=== PATIENT | female | born 1970 | race Caucasian/White ===

== ENCOUNTER 2018-06-30 15:50 | Outpatient (CLI) | payer BC, SELFPAY ==
--- NOTE | 2018-06-30 15:09 | DI.RAD_ITS ---
SYMPTOMS/DIAGNOSIS: RIGHT HIP PAIN, M25.551, RIGHT HIP GROIN PAIN DAILY, WORSE WITH STAIRS RIGHT HIP AND PELVIS: Three views were obtained. There is minimal hypertrophic spurring of the acetabulum. The cartilaginous joint space appears well maintained. No other bony abnormalities seen. CONCLUSION: Minimal DJD of the hip.
== END 2018-06-30 16:10 ==
PROVIDERS: PCP Nurse Practitioner Family; Visit Provider Nurse Practitioner Family
DX: M25.551 Pain in right hip (principal); R10.31 Right lower quadrant pain; M16.11 Unilateral primary osteoarthritis, right hip
CPT/HCPCS: 73502

== ENCOUNTER 2018-12-07 10:50 | Outpatient (CLI) | payer BC, SELFPAY ==
[2018-12-07 11:30] LABS: Abs Immature Grans 0.03 k/cumm (0.0-0.09); Absolute Basophil Count 0.02 k/cumm (0.0-0.2); Absolute Eosinophil Count 0.07 k/cumm (0.0-0.7); Absolute Lymphocyte Count 1.31 k/cumm (1.2-3.4); Absolute Monocyte Count 0.54 k/cumm (0.11-0.7); Absolute Neutrophil Count 4.17 k/cumm (1.2-6.7); Basophils % 0.3; Eosinophils % 1.1; HCT 38.2 % (36.0-46.0); HGB 12.7 g/dL (12.0-15.5); Immature Grans % 0.5; Lymphocytes % 21.3; Mean Corp. HGB Concentration 33.2 g/dL (32.0-36.0); Mean Corpuscular Hemoglobin 29.3 pg (27.0-33.0); Mean Corpuscular Volume 88.2 fL (80-95); Mean Platelet Volume 11.3 fL (8.0-11.0); Monocytes % 8.8; Platelet Count 184 x1000/uL (130-400); RBC 4.33 m/cumm (4.00-5.20); RBC Distribution Width 12.9 % (11.7-14.6); White Blood Cell Count 6.14 k/cumm (4.4-10.8)
[2018-12-07 11:58] LABS: ALT 15 U/L (12-78); AST 7 U/L (15-37); Albumin 3.2 g/dL (3.4-5.0); Alkaline Phosphatase 79 U/L (46-116); BUN 10 mg/dL (7-18); Bilirubin, Total 0.2 mg/dL (0.2-1.0); CREATININE 0.73 mg/dL (0.55-1.02); Calcium 8.7 mg/dL (8.5-10.1); Chloride 106 mmol/L (98-107); Ferritin 69 ng/mL (8-388); Glucose 85 mg/dL (70-100); Potassium 3.5 mmol/L (3.5-5.1); Sodium 139 mmol/L (136-145); Total Protein 6.9 g/dL (6.4-8.2)
== END 2018-12-07 11:10 ==
PROVIDERS: PCP Nurse Practitioner Family; Visit Provider Registered Nurse Oncology
DX: C50.919 Malignant neoplasm of unspecified site of unspecified female breast (principal)
CPT/HCPCS: 36415; 80053; 82728; 85025

== ENCOUNTER 2019-02-21 01:10 | Outpatient (CLI) | payer BC, SELFPAY ==
--- NOTE | 2019-02-21 09:41 | DI.US_ITS ---
EXAM: US BREAST RT LIMITED CLINICAL HISTORY: RT BREAST PAIN, MASTODYNIA RT BR, HX LT BR CA. {AMRITA LIFETIME RISK OF DEVELOPING BREAST CARCINOMA: (>20% is considered elevated and screening breast MRI can be considered)} TECHNIQUE: Craniocaudal and mediolateral oblique Full Field Digital Mammography views with Computer Aided Diagnosis followed by Breast Tomosynthesis and bilateral breast ultrasound. COMPARISON: DIAGNOSTIC BILAT MAMMO W/CAD from 11/28/2012 Diagnostic Right Mammo from 09/29/2015 FINDINGS: Mammography/Tomosynthesis: Patient is status post left mastectomy Breast Density: Breast Density - Category B - Scattered areas of fibroglandular density Masses/Architectural Distortion: No suspicious masses are present. Stable coarsely calcified masses in the right breast. These likely reflect benign fibroadenomas. Microcalcifications: No suspicious pleomorphic-type are seen. Breast Ultrasound: Right breast ultrasound Echotexture: Normal appearance of the glandular tissue. Shadowing: No suspicious foci. Cyst: None. Solid lesions: There is a shadowing well-circumscribed echogenic nodule at the 9 o'clock position of the right breast 6 cm from the nipple. This corresponds in location to the calcified nodule seen on the mammogram. No suspicious cystic or solid masses are seen sonographically. Ductal dilation: None. IMPRESSION: 1. No definite evidence for malignancy Unless there is more urgent need, follow-up screening mammography is recommended, as per [place] [employer] guidelines. BI-RADS Cat 2 - Benign Findings Breast Density - Category B - Scattered areas of fibroglandular density The findings were discussed with the patient on the date of the examination. A negative radiographic report should not delay biopsy if a dominant or clinically suspicious mass is present. Up to ten percent of cancers are not identified on mammography. A negative report may reinforce clinical impression. Adenosis and dense breasts may obscure an underlying neoplasm. False positive reports average 6 to 10%.
[2019-02-21 11:05] LABS: Abs Immature Grans 0.02 k/cumm (0.0-0.09); Absolute Basophil Count 0.01 k/cumm (0.0-0.2); Absolute Eosinophil Count 0.07 k/cumm (0.0-0.7); Absolute Lymphocyte Count 1.31 k/cumm (1.2-3.4); Absolute Monocyte Count 0.39 k/cumm (0.11-0.7); Absolute Neutrophil Count 4.27 k/cumm (1.2-6.7); Basophils % 0.2; Eosinophils % 1.2; HCT 44.2 % (36.0-46.0); HGB 14.6 g/dL (12.0-15.5); Immature Grans % 0.3; Lymphocytes % 21.6; Mean Corpuscular Hemoglobin 28.6 pg (27.0-33.0); Mean Corpuscular Volume 86.7 fL (80-95); Mean Platelet Volume 10.6 fL (8.0-11.0); Monocytes % 6.4; Neutrophils % 70.3; Platelet Count 231 x1000/uL (130-400); RBC Distribution Width 12.8 % (11.7-14.6); White Blood Cell Count 6.07 k/cumm (4.4-10.8)
[2019-02-21 11:54] LABS: Glucose 85 mg/dL (70-100); TSH (W/Ref FT4) 2.16 uIU/mL (0.36-3.74)
[2019-02-21 12:06] LABS: Calculated LDL 163 mg/dL; Cholesterol 231 mg/dL (50-200); HDL Cholesterol 40 mg/dL (40-60); Triglyceride 144 mg/dL (30-150)
== END 2019-02-21 01:30 ==
PROVIDERS: PCP Nurse Practitioner Family; Visit Provider Nurse Practitioner Women's Health
DX: N64.4 Mastodynia (principal); N63.11 Unspecified lump in the right breast, upper outer quadrant; Z85.3 Personal history of malignant neoplasm of breast; Z90.12 Acquired absence of left breast and nipple; D64.9 Anemia, unspecified; Z13.220 Encounter for screening for lipoid disorders; Z00.00 Encounter for general adult medical examination without abnormal findings
CPT/HCPCS: 36415; 76642; 77061; 77065; 80061; 82947; 84443; 85025; G0279

== ENCOUNTER 2019-06-04 11:56 | Emergency (ER) | payer BC, SELFPAY ==
[2019-06-04] VITALS (16 sets, daily range): BP systolic 123–152; BP diastolic 70–89; PULSE 63–76; RESP 10–22; TEMP 36.5–36.8; O2SAT 97–100
--- NOTE | 2019-06-04 12:56 | ED.GENADUL_ITS ---
Discharge Plan Disposition Patient Disposition: HOME Condition: Stable Discharge Details Chief Complaint: SOB Clinical Impression: Dyspnea Primary Care Provider: Nhi Fraser ED Provider: Guille Sandoval Home Meds and New Rx's Prescriptions: Continued citalopram 40 mg Tablet 40 mg PO DAILY RF: 0 omeprazole 40 mg Capsule,Delayed Release(Dr/Ec) 40 mg PO DAILY RF: 0 topiramate [Topamax] 100 mg tablet 200 mg PO BID RF: 0 Discharge Instructions Instructions: Dyspnea (ED) Additional Instructions: I have ordered an outpatient stress test for you as we discussed. Please call [phone]. Please follow-up with Dr Nhi Fraser in clinic for recheck after your stress test. Return for worsening symptoms or any acute concerns in the interim. Continue your regular medications. Medical Decision Making <Guille Sandoval MD - Last Filed: 06/04/19 16:15> 48-year-old female presents from home complaining of 6+ weeks of intermittent episodes of exertional shortness of breath associated with a tightness in her chest and neck. Has been associated with recent increase in stress and anxiety, 25 pound weight gain. She was seen at her primary care physician's office this week and reassured without any evidence of active URI. She arrives with a blood pressure 152/89, pulse 72, 99% sat on room air. Her exam is reassuring. Differential diagnosis is broad and would include ACS, CHF, must exclude PE or pneumonitis, would consider globus hystericus. IV was placed, screening EKG obtained, patient referred for laboratory, chest x-ray. Initial labs are reassuring with a white count of 6.4, hematocrit 41, platelets 266. D-dimer 232. Chemistries within normal limits, initial troponin negative, BNP 70. Chest x-ray without acute findings. Patient kept on a automotive consultant and repeat troponin obtained and negative. I will order an outpatient stress test for her. I discussed with her follow-up with primary after this outpatient evaluation. She is stable for discharge at this time. Lab Data Lab results reviewed: Yes I reviewed the patient's lab results. Labs: Laboratory Results - last 24 hr 06/04/19 06/04/19 06/04/19 13:30 13:30 13:30 WBC 6.47 RBC 4.74 Hgb 14.0 Hct 41.4 MCV 87.3 MCH 29.5 MCHC 33.8 RDW 13.0 Plt Count 266 MPV 10.6 Immature Gran % 0.3 Neutrophils % 63.9 Lymphocytes % 24.4 Monocytes % 9.6 Eosinophils % 1.5 Basophils % 0.3 Absolute Neutrophils 4.13 Absolute Lymphocytes 1.58 Absolute Monocytes 0.62 Absolute Eosinophils 0.10 Absolute Basophils 0.02 D-Dimer 232 Sodium 140 Potassium 3.8 Chloride 106 Carbon Dioxide 23.2 Anion Gap 10.8 BUN 13 Creatinine 0.64 Estimated GFR/1.73 m2 >= 60.00 Glucose 86 Calcium 8.7 Magnesium 2.0 Total Bilirubin 0.2 AST 19 ALT 21 Alkaline Phosphatase 74 Troponin I < 0.05 NT-Pro-B Natriuret Pep 70 Total Protein 7.3 Albumin 3.5 ECG Data Attestation: I personally reviewed and interpreted this ECG (s) as follows: Interpretation: Normal sinus rhythm with a rate of 70, the QRS is narrow, there is nonspecific flattening in the inferior leads, no ST segment elevation appreciated. <LAZ Ewing - Last Filed: 06/04/19 16:30> Has accepted in anticipated sign out, Dr. Sandoval discharged patient prior to his departure, I did not see or evaluate patient. Name entered in error. HPI <Guille Sandoval MD - Last Filed: 06/04/19 16:15> General Mode of arrival: ambulatory . Date/Time Provider Initiated Documentation: 06/04/19 12:13 . Limitations to Documentation: no limitations . Information obtained by: patient . History of Present Illness 48 year old F presents to the emergency department with the chief complaint of Shortness of breath, exertional, 6 weeks or greater, described as mild, and is localized to the chest. Patient reports no radiation. Patient started experiencing this week(s) and it has been intermittent. Rest improves symptom(s), Other factors that worsen symptoms (Exertion) . Patient notes chest pain and other (Neck pain). Patient did receive the following treatments prior to arrival, none Related Data Home Medications Medication Instructions Recorded Confirmed citalopram 40 mg PO DAILY 06/04/19 06/04/19 omeprazole 40 mg PO DAILY 06/04/19 06/04/19 topiramate [Topamax] 200 mg PO BID 06/04/19 06/04/19 Allergies Allergy/AdvReac Type Severity Reaction Status Date / Time No Known Allergies Allergy Unverified 06/04/19 12:09 General Stated Complaint: SOB JAKY: 3 Review of Systems <Guille Sandoval MD - Last Filed: 06/04/19 16:15> Narrative: No lower extremity pain or swelling, no prolonged travel or immobilization. No known sick contacts. No syncope. States she has not had fever, sputum. Increased anxiety and weight gain of 25 pounds. 8 systems reviewed and otherwise negative. PFSH <Guille Sandoval MD - Last Filed: 06/04/19 16:15> Medical History Acid reflux (Chronic) Migraines (Chronic) Social History Smoking/Tobacco Use Status: Never Alcohol Intake: never Drug use: Never Substance use type: does not use Exam <Guille Sandoval MD - Last Filed: 06/04/19 16:15> Narrative Exam Narrative: GEN: awake, alert, oriented 3. Pleasant, well groomed, interactive. HEAD: Normocephalic, atraumatic ENT: Mucous membranes moist, oropharynx unremarkable, External ear exam unremarkable EYES: PERRL, EOMI NECK: Full ROM, no JANE, no menigismus CHEST/RESP: Nontender, clear to auscultation bilateral, no wheeze/rhonchi/rales CARDIOVASCULAR: RRR, no murmur, rub zuri. 2+ Rad pulse bilateral ABDOMEN: Soft, nontender, no mass. +Bowel sounds EXT: Full ROM, no edema, no rash Neuro: Grossly normal neurologic exam, conversant, interactive. Psych: Speech fluent, thoughts congruent, affect normal Course <Guille Sandoval MD - Last Filed: 06/04/19 16:15> Vital Signs Vital signs: Vital Signs Temperature 36.5 C 06/04/19 11:59 Pulse 72 06/04/19 11:59 Respiratory Rate 22 06/04/19 11:59 Blood Pressure 152/89 H 06/04/19 11:59 Pulse Oximetry 99 06/04/19 11:59 Temperature 36.5 C 06/04/19 11:59 Temperature Source Skin 06/04/19 11:59 Pulse 72 06/04/19 11:59 Respiratory Rate 22 06/04/19 11:59 Respiratory Effort 06/04/19 12:08 Blood Pressure 152/89 H 06/04/19 11:59 Blood Pressure Position Sitting 06/04/19 11:59 Pulse Oximetry 99 06/04/19 11:59 Oxygen Delivery Method Room Air 06/04/19 11:59 Oxygen Flow Rate 0 06/04/19 11:59 Pain Level 5 06/04/19 11:59 Sign Out <Guille Sandoval MD - Last Filed: 06/04/19 16:15> Sign Out Data: Sign Out Comment: [email or web address] TRop Last updated by Guille Sandoval MD at 06/04/19 15:50
--- NOTE | 2019-06-04 13:37 | DI.RAD_ITS ---
EXAM: XR CHEST 2V PA LATERAL CLINICAL HISTORY: shortness of breath. TECHNIQUE: 2D digital imaging was performed. COMPARISON: No exams were available for comparison FINDINGS: LUNGS: Clear. No pleural abnormality seen. HEART: Normal. MEDIASTINUM: Normal. OTHER FINDINGS:Normal. BONE:Normal. IMPRESSION: No acute pulmonary findings.
[2019-06-04 13:48] LABS: Abs Immature Grans 0.02 k/cumm (0.0-0.09); Absolute Basophil Count 0.02 k/cumm (0.0-0.2); Absolute Lymphocyte Count 1.58 k/cumm (1.2-3.4); Absolute Monocyte Count 0.62 k/cumm (0.11-0.7); Absolute Neutrophil Count 4.13 k/cumm (1.2-6.7); Basophils % 0.3; Eosinophils % 1.5; HCT 41.4 % (36.0-46.0); Immature Grans % 0.3 %; Lymphocytes % 24.4; Mean Corp. HGB Concentration 33.8 g/dL (32.0-36.0); Mean Corpuscular Hemoglobin 29.5 pg (27.0-33.0); Mean Corpuscular Volume 87.3 fL (80-95); Mean Platelet Volume 10.6 fL (8.0-11.0); Monocytes % 9.6; Neutrophils % 63.9; Platelet Count 266 x1000/uL (130-400); RBC 4.74 m/cumm (4.00-5.20); White Blood Cell Count 6.47 k/cumm (4.4-10.8)
[2019-06-04 14:00] LABS: ALT 21 U/L (14-59); AST 19 U/L (15-37); Albumin 3.5 g/dL (3.4-5.0); Alkaline Phosphatase 74 U/L (46-116); Anion Gap 10.8 mmol/L (3-11); BUN 13 mg/dL (7-18); Bilirubin, Total 0.2 mg/dL (0.2-1.0); CO2 23.2 mmol/L (21.0-32.0); CREATININE 0.64 mg/dL (0.55-1.02); Calcium 8.7 mg/dL (8.5-10.1); Chloride 106 mmol/L (98-107); Glucose 86 mg/dL (74-106); NT-proBNP 70 pg/mL (<300); Potassium 3.8 mmol/L (3.5-5.1); Sodium 140 mmol/L (136-145); Total Protein 7.3 g/dL (6.4-8.2); Troponin I < 0.05 ng/Ml (<0.06)
[2019-06-04 14:23] LABS: D-Dimer 232 ng/mlFEU (<500)
[2019-06-04] MEDS: Ketorolac 30 MG/ML VIAL IVP (16:02)
[2019-06-04 16:08] LABS: Troponin I < 0.05 ng/Ml (<0.06)
--- NOTE | 2019-06-04 17:52 | NUR.NOTE ---
Referral faxed to PCP Nhi Fraser.Nursing Note:
== END 2019-06-04 16:33 | disposition home or self-care (01) ==
PROVIDERS: Emergency Provider Emergency Medicine; PCP Nurse Practitioner Family
DX: R06.00 Dyspnea, unspecified (principal)
CPT/HCPCS: 36415; 80053; 93005; 96374; 99284; 71046; 83735; 83880; 84484; 85025; 85379; 93010; 99283; J1885

== ENCOUNTER 2019-06-07 00:19 | Outpatient (CLI) | payer BC, SELFPAY ==
--- NOTE | 2019-06-07 09:44 | ETT_ITS ---
APPROVED REPORT Exam: Exercise Treadmill Patient Location: Out-Patient Room/Bed: Stress Nurse: Miley Rosales RN BMI: 32.76 Baseline Rhythm: NSR Indications: SOB with minimal exertion. Medical History Allergies: No known drug allergies Pretest Chest Pain Characteristics: Dyspnea Exercise History: Indeterminate Lung Sounds: Clear to auscultation Heart Sounds: Regular Stress Test Details Test: Exercise stress testing was performed using a Stephan protocol. Rest Stress HR Max Heart Rate (APMHR): 173 bpm Resting HR Supine: 78 bpm Target HR (85% APMHR): 147 bpm Resting HR Standin bpm Max HR Achieved: 122 bpm % of APMHR: 70 Recovery HR: 79 bpm HR response to stress: Normal HR response to stress BP Resting BP Supine: 140/82 mmHg Resting BP Standin/80 mmHg Max BP: 220/98 mmHg Recovery BP: 130/80 mmHg BP response to stress: Abnormal hypertensive response to stress. ECG Resting ECG: Sinus Rhythm ST Change: No significant ST segment changes Ectopy: none Stress ECG: Sinus Tachycardia ST Change: No significant ST segment changes Arrhythmia: None Recovery ECG: Sinus Rhythm Recovery ST Change: No significant ST segment changes Recovery Arrhythmia: None Clinical Reason for Termination: Dyspnea Stress Symptoms: Dyspnea Exercise duration: 2 min47 sec Highest Stage Achieved: Stage 1: 1.7 mph at 10% grade. Exercise capacity: 4.64 METs Functional Capacity: Markedly diminished capacity Stress ECG Conclusion 1. Patient exercised for 2 minutes 47 seconds (4.5 METS). Exercise was stopped due to dyspnea. 2. This represents a markedly diminished exercise capacity. 3. The patient reached 70% of his predicted heart rate but was severely hypertensive during exercise. Rate-pressure product was 26,000. 4. This was an insufficient study as the lack of heart rate augmentation limits the interpretation. 5. At this level of stress there was no significant ischemia visualized on ECG. 6. The Curtis Score (3) estimates an annual cardiovascular mortality of 1% and a five year survival of 94%. Using the Curtis Score there is an intermediate probability of angiographic coronary disease. Protocol Used: Stephan Protocol Stress Test Summary STAGE Time (mins) Speed (mph) Grade (%) HR BP SYMPTOMS METS Supine 78 140/82 Standing 82 134/80 1 3 1.7 10 119 220/98 Significant dyspnea 4.6 2 6 2.5 12 7 3 9 3.4 14 10.2 4 12 4.2 16 12.9 5 15 5.0 18 17.2 1 min recovery 108 170/90 3 min recovery 86 140/80 6 min recovery 79 130/80
== END 2019-06-07 00:39 ==
PROVIDERS: PCP Nurse Practitioner Family; Visit Provider Emergency Medicine
DX: R06.02 Shortness of breath (principal); R06.09 Other forms of dyspnea; R68.89 Other general symptoms and signs
CPT/HCPCS: 93017

== ENCOUNTER 2019-06-07 12:07 | Emergency (ER) | payer BC, SELFPAY ==
[2019-06-07 12:10] VITALS: BP 118/76; PULSE 87; RESP 16; TEMP 36.7; O2SAT 100
--- NOTE | 2019-06-07 12:24 | ED.GENADUL_ITS ---
Discharge Plan Disposition Patient Disposition: HOME Condition: Stable Discharge Details Chief Complaint: Cellulitis Clinical Impression: Cellulitis of arm, left Primary Care Provider: Nhi Fraser ED Provider: Guille Sandoval Home Meds and New Rx's Prescriptions: New amoxicillin-pot clavulanate 875-125 mg tablet 1 tab PO BID 10 Days Qty: 20 RF: 0 Continued citalopram 40 mg Tablet 40 mg PO DAILY RF: 0 omeprazole 40 mg Capsule,Delayed Release(Dr/Ec) 40 mg PO DAILY RF: 0 topiramate [Topamax] 100 mg tablet 200 mg PO BID RF: 0 Discharge Instructions Instructions: Cellulitis (ED) Additional Instructions: Keep arm elevated above the level of the heart to reduce pain and swelling. Take antibiotics as prescribed. The next dose of Augmentin will be this evening at bedtime. I recommend you take an [id number] probiotic or live culture yogurt once daily while on this medication for improved gut health. Continue your regularly prescribed occasions. Please follow-up with Alfredo in clinic for recheck next week. I discussed her case with her over the phone today. Discharge Data Discharge Date/Time-TO BE ENTERED AT DEPARTURE: 06/07/19 14:53 Medical Decision Making 48-year-old female known to me from visit to the emergency department on June 04 for some longstanding shortness of breath. She had a work-up including troponin x2 and negative d-dimer, with follow-up palpation exercise stress test today. She states that the shortness of breath has been unchanged, it is primarily exertional, and there is no chest pain. She noticed this morning erythema that began at her wrist with associated left arm swelling and erythema has spread up the arm today. She was in clinic with Alfredo Helton with these findings, subsequently sent to the emergency department for evaluation. Her exam reveals normal pulse, blood pressure, she is afebrile and oxygenating 100% on room air. There is a blanching, erythematous rash of the left upper extremity with associated swelling. Most consistent with cellulitis, must exclude underlying DVT although less likely given recent negative d-dimer. Patient IV access established, screening labs, blood cultures obtained, antibiotics initiated with Unasyn and patient referred for ultrasound of the upper extremity. There is no evidence of DVT. Laboratories reveal a white count of 7.5, hematocrit 41.5, platelets 245. Chemistries unremarkable. Lactic acid 1.3. Will place on Augmentin and arrange for outpatient follow-up in clinic. Lab Data Lab results reviewed: Yes I reviewed the patient's lab results. Labs: Laboratory Results - last 24 hr 06/07/19 06/07/19 06/07/19 12:35 12:35 12:35 WBC 7.54 RBC 4.69 Hgb 13.6 Hct 41.5 MCV 88.5 MCH 29.0 MCHC 32.8 RDW 13.1 Plt Count 245 MPV 10.4 Immature Gran % 0.3 Neutrophils % 77.1 Lymphocytes % 13.4 Monocytes % 8.4 Eosinophils % 0.7 Basophils % 0.1 Absolute Neutrophils 5.82 Absolute Lymphocytes 1.01 L Absolute Monocytes 0.63 Absolute Eosinophils 0.05 Absolute Basophils 0.01 Sodium 138 Potassium 3.5 Chloride 106 Carbon Dioxide 23.3 Anion Gap 8.7 BUN 9 Creatinine 0.75 Estimated GFR/1.73 m2 >= 60.00 Glucose 103 Lactate 1.3 Calcium 8.5 Total Bilirubin 0.2 AST 13 L ALT 17 Alkaline Phosphatase 86 Total Protein 7.5 Albumin 3.5 HPI General Mode of arrival: ambulatory . Date/Time Provider Initiated Documentation: 06/07/19 12:12 . Limitations to Documentation: no limitations . Information obtained by: patient . History of Present Illness 48 year old F presents to the emergency department with the chief complaint of Left arm swelling and rash, unchanged shortness of breath, Quality is described as dull, and is localized to the left and upper extremity. Patient reports no radiation. Patient started experiencing this hour(s) and it has been constant. No relieving factors improve symptom(s), No exacerbating factors reported . Patient notes other (She has some chronic shortness of breath which is unchanged. Perform stress test today. Denies fever, + chills). Patient did receive the following treatments prior to arrival, none Related Data Home Medications Medication Instructions Recorded Confirmed citalopram 40 mg PO DAILY 06/04/19 06/07/19 omeprazole 40 mg PO DAILY 06/04/19 06/07/19 topiramate [Topamax] 200 mg PO BID 06/04/19 06/07/19 amoxicillin-pot clavulanate 1 tab PO BID 10 Days #20 tab 06/07/19 Previous Rx's Medication Instructions Recorded amoxicillin-pot clavulanate 1 tab PO BID 10 Days #20 tab 06/07/19 Allergies Allergy/AdvReac Type Severity Reaction Status Date / Time No Known Allergies Allergy Unverified 06/07/19 12:16 General Stated Complaint: Cellulitis JAKY: 3 Review of Systems Narrative: 6 systems reviewed and otherwise negative [facility] Social History Smoking/Tobacco Use Status: Never Alcohol Intake: never Drug use: Never Substance use type: does not use Do you feel safe at home: Yes Do you feel safe in your relationship?: Yes Exam Narrative Exam Narrative: GEN: awake, alert, oriented 3. Pleasant, well groomed, interactive. HEAD: Normocephalic, atraumatic ENT: Mucous membranes moist, oropharynx unremarkable, External ear exam unremarkable EYES: PERRL, EOMI NECK: Full ROM, no JANE, no menigismus CHEST/RESP: Nontender, clear to auscultation bilateral, no wheeze/rhonchi/rales CARDIOVASCULAR: RRR, no murmur, rub zuri. 2+ Rad pulse bilateral ABDOMEN: Soft, nontender, no mass. +Bowel sounds EXT: Full ROM, the left upper extremity is edematous throughout. There is a blanching erythematous rash on the medial portion of the humerus and forearm. Neuro: Grossly normal neurologic exam, conversant, interactive. Psych: Speech fluent, thoughts congruent, affect normal Course Vital Signs Vital signs: Vital Signs Temperature 36.7 C 06/07/19 12:10 Pulse 87 06/07/19 12:10 Respiratory Rate 16 06/07/19 12:10 Blood Pressure 118/76 06/07/19 12:10 Pulse Oximetry 100 06/07/19 12:10 Temperature 36.7 C 06/07/19 12:10 Temperature Source Skin 06/07/19 12:10 Pulse 87 06/07/19 12:10 Respiratory Rate 16 06/07/19 12:10 Respiratory Effort 06/07/19 12:16 Blood Pressure 118/76 06/07/19 12:10 Blood Pressure Position Sitting 06/07/19 12:10 Pulse Oximetry 100 06/07/19 12:10 Oxygen Delivery Method Room Air 06/07/19 12:10 Oxygen Flow Rate 0 06/07/19 12:10 Pain Level 3 06/07/19 12:10
[2019-06-07] MEDS: diphenhydrAMINE 50 MG/ML VIAL 12.5 MG IVP (12:51)
[2019-06-07 13:04] LABS: Lactate 1.3 mmol/L (0.6-1.4)
[2019-06-07 13:09] LABS: Abs Immature Grans 0.02 k/cumm (0.0-0.09); Absolute Basophil Count 0.01 k/cumm (0.0-0.2); Absolute Eosinophil Count 0.05 k/cumm (0.0-0.7); Absolute Lymphocyte Count 1.01 k/cumm (1.2-3.4); Absolute Monocyte Count 0.63 k/cumm (0.11-0.7); Absolute Neutrophil Count 5.82 k/cumm (1.2-6.7); Basophils % 0.1; Eosinophils % 0.7; HCT 41.5 % (36.0-46.0); HGB 13.6 g/dL (12.0-15.5); Immature Grans % 0.3 %; Lymphocytes % 13.4; Mean Corp. HGB Concentration 32.8 g/dL (32.0-36.0); Mean Corpuscular Volume 88.5 fL (80-95); Mean Platelet Volume 10.4 fL (8.0-11.0); Monocytes % 8.4; Neutrophils % 77.1; Platelet Count 245 x1000/uL (130-400); RBC 4.69 m/cumm (4.00-5.20); RBC Distribution Width 13.1 % (11.7-14.6); White Blood Cell Count 7.54 k/cumm (4.4-10.8)
[2019-06-07 13:18] LABS: ALT 17 U/L (14-59); AST 13 U/L (15-37); Albumin 3.5 g/dL (3.4-5.0); Alkaline Phosphatase 86 U/L (46-116); Anion Gap 8.7 mmol/L (3-11); BUN 9 mg/dL (7-18); Bilirubin, Total 0.2 mg/dL (0.2-1.0); CO2 23.3 mmol/L (21.0-32.0); CREATININE 0.75 mg/dL (0.55-1.02); Calcium 8.5 mg/dL (8.5-10.1); Chloride 106 mmol/L (98-107); Glucose 103 mg/dL (74-106); Potassium 3.5 mmol/L (3.5-5.1); Sodium 138 mmol/L (136-145); Total Protein 7.5 g/dL (6.4-8.2)
[2019-06-07] MEDS: Normal Saline Flush 10 ML SYR IVP ×2 (13:22→14:01)
--- NOTE | 2019-06-07 13:33 | DI.US_ITS ---
EXAM: US UPPER EXTREMITY VENOUS LT CLINICAL HISTORY: SWELLING AND RASH TECHNIQUE: Ultrasound performed using standard protocol. COMPARISON: No exams were available for comparison FINDINGS: The arm was scanned from the wrist through the neck. The jugular, subclavian and axillary veins as w ell as basilic and cephalic veins and forearm veins appear patent. No thrombus is visible. There ar e no superficial venous varicosities. No localized fluid collection is seen. IMPRESSION: Negative left upper extremity ultrasound.
[2019-06-07] MEDS: AMPICILLIN/SULBACTAM 3 GM in Normal Saline 100 ML IVPB (13:59)
--- NOTE | 2019-06-07 14:05 | NUR.NOTE ---
ordered a meal tray for pt Nursing Note:
[2019-06-07] MEDS: Amoxicillin 875/Clav. 125 TAB PO (14:45)
[2019-06-07 14:46] VITALS: BP 134/75; PULSE 76; RESP 16; TEMP 36.7; O2SAT 92
[2019-06-07 15:03] VITALS: BP 134/75; PULSE 76; RESP 16; TEMP 36.7; O2SAT 92
== END 2019-06-07 14:53 | disposition home or self-care (01) ==
PROVIDERS: Emergency Provider Emergency Medicine; PCP Nurse Practitioner Family
DX: L03.114 Cellulitis of left upper limb (principal)
CPT/HCPCS: 36415; 80053; 87040; 87077; 96365; 96375; 99284; 83605; 85025; 93971; J0295; J1200

== ENCOUNTER 2019-06-19 11:04 | Emergency (ER) | payer BC, SELFPAY ==
[2019-06-19 11:08] VITALS: BP 131/92; PULSE 95; RESP 18; TEMP 36.6; O2SAT 97
--- NOTE | 2019-06-19 11:23 | W.ED.GENAD ---
Discharge Plan Disposition Patient Disposition: HOME Condition: Stable Discharge Details Chief Complaint: Nausea/Vomit/Diar Clinical Impression: Hypokalemia, Diarrhea Primary Care Provider: Nhi Fraser ED Provider: Andrew Hawthorne Home Meds and New Rx's Prescriptions: New potassium chloride 20 mEq tablet extended release 20 meq PO BID Qty: 14 RF: 0 ondansetron 4 mg tablet,disintegrating 4 mg PO Q8H PRN (Reason: nausea and vomiting) Qty: 20 RF: 0 metronidazole [Flagyl] 500 mg tablet 500 mg PO Q8H Qty: 21 RF: 0 Continued citalopram 40 mg Tablet 40 mg PO DAILY RF: 0 omeprazole 40 mg Capsule,Delayed Release(Dr/Ec) 40 mg PO DAILY RF: 0 topiramate [Topamax] 100 mg tablet 200 mg PO BID RF: 0 Discharge Instructions Instructions: Hypokalemia (ED), Acute Diarrhea (ED) Additional Instructions: follow up with your primary care provider within 1 week and have your potassium level rechecked return a stool sample to our lab when you are able to provide a sample if you feel more ill, have severe worsening of pain or high fevers return to the emergency department Medical Decision Making 48 yo female who recently was on augmentin for an arm cellulitis that has resolved comes in with 1 week of diarrhea that is worsening and also intermittent n/v and abdominal pain. Denies fevers, recent travel. She is noted to have tenderness throughout the lower abdomen. Given her recent abx will test for c diff and also obtain lab work and imaging to eval for sbo, diverticulitis and appendicitis vs colitis. labs show K of 2.7 and anion gap of 16 likely from dehydration. Her pain is gone and she feels better, unable to provide stool sample here, CT does confirm colitis. Will start flagyl and send home with stool collection kit to return to lab for testing, advised f/u with pcp and return precautions given Differential Diagnosis Differential Diagnosis: c diff, colitis, diverticulitis, appendicitis, sbo Imaging Data Radiologic Study: Attestation: I personally reviewed and interpreted this imaging study as follows: Imaging: CT Scan Radiologist's impression: IMPRESSION: Diffuse mild colonic wall thickening, consistent with colitis. Lab Data Lab results reviewed: Yes I reviewed the patient's lab results. HPI General Mode of arrival: ambulatory. Date/Time Provider Initiated Documentation: 06/19/19 11:12. Limitations to Documentation: no limitations. Information obtained by: patient. History of Present Illness 48 year old F presents to the emergency department with the chief complaint of n/v/d, described as moderate, and it has been constant. No relieving factors improve symptom(s), No exacerbating factors reported . Patient did receive the following treatments prior to arrival, none Related Data Home Medications Medication Instructions Recorded Confirmed citalopram 40 mg PO DAILY 06/04/19 06/19/19 omeprazole 40 mg PO DAILY 06/04/19 06/19/19 topiramate [Topamax] 200 mg PO BID 06/04/19 06/19/19 metronidazole [Flagyl] 500 mg PO Q8H #21 tab 06/19/19 ondansetron 4 mg PO Q8H PRN #20 tab 06/19/19 potassium chloride 20 meq PO BID #14 tab 06/19/19 Previous Rx's Medication Instructions Recorded metronidazole [Flagyl] 500 mg PO Q8H #21 tab 06/19/19 ondansetron 4 mg PO Q8H PRN #20 tab 06/19/19 potassium chloride 20 meq PO BID #14 tab 06/19/19 Allergies Allergy/AdvReac Type Severity Reaction Status Date / Time No Known Allergies Allergy Unverified 06/07/19 12:16 General Stated Complaint: Nausea/Vomit/Diar JAKY: 3 Review of Systems All systems reviewed & are unremarkable except as noted in HPI and below Constitutional Constitutional: Denies chills and Denies fever(s) Cardiovascular Cardiovascular: Denies chest pain and Denies dyspnea Respiratory Respiratory: Denies cough and Denies dyspnea Musculoskeletal Musculoskeletal: Denies joint swelling Endocrine Endocrine: Denies heat intolerance [facility] Social History Smoking/Tobacco Use Status: Never Alcohol Intake: never Drug use: Never Substance use type: does not use Do you feel safe at home: Yes Do you feel safe in your relationship?: Yes Exam Const General: no acute distress Orientation: alert HENMT Head: normal to inspection Ears: external ears normal General nose exam: external nose normal Mouth: moist mucous membranes Eyes General: appearance normal, both eyes and all related structures Neck Neck: normal visual inspection Resp Effort & Inspection: normal respiratory effort and able to speak in complete sentences Cardio Rate: regular rate GI Palpation: soft Skin General skin exam: no rashes or lesions noted Neuro General: alert and oriented x3 Extrem General: normal to inspection Psych Mental Status: mental status grossly normal Course Vital Signs Vital signs: Vital Signs Temperature 36.6 C 06/19/19 11:08 Pulse 95 H 06/19/19 11:08 Respiratory Rate 18 06/19/19 11:08 Blood Pressure 131/92 H 06/19/19 11:08 Pulse Oximetry 97 06/19/19 11:08 Temperature 36.6 C 06/19/19 11:08 Temperature Source Skin 06/19/19 11:08 Pulse 95 H 06/19/19 11:08 Respiratory Rate 18 06/19/19 11:08 Respiratory Effort Non-Labored 06/19/19 11:12 Blood Pressure 131/92 H 06/19/19 11:08 Blood Pressure Position Sitting 06/19/19 11:08 Pulse Oximetry 97 06/19/19 11:08 Oxygen Delivery Method Room Air 06/19/19 11:08 Oxygen Flow Rate 0 06/19/19 11:08 Pain Level 5 06/19/19 11:08 Lab/Test Results Lab/Test Results: 06/19/19 11:16 Nasopharynx Influenza Types A,B Antigen - Pending
[2019-06-19] MEDS: Normal Saline 1,000 ML 1000 ML IV (11:40)
[2019-06-19] MEDS: Ondansetron 4 MG/2 ML VIAL IVP (11:40)
--- NOTE | 2019-06-19 11:42 | DI.CT_ITS ---
EXAM: CT ABDOMEN PELVIS W CLINICAL HISTORY: nausea, vomiting, abdominal pain, ?sbo TECHNIQUE: Post IV contrast. No oral contrast. FINDINGS: The heart size is normal. The lung bases are clear. The liver, gallbladder, spleen, pancreas, kidneys and adrenals as well as urinary bladder are unremarkable. The patient is status post hysterectomy. T he ovaries appear normal. The appendix is normal. There is no gastric or small bowel distention. Ther e is wall thickening diffusely involving the colon, consistent with colitis. There is no free air or free fluid. The aorta is normal in diameter. Degenerative disc changes are seen at L5-S1. IMPRESSION: Diffuse mild colonic wall thickening, consistent with colitis.
[2019-06-19 11:54] LABS: Abs Immature Grans 0.07 k/cumm (0.0-0.09); Absolute Basophil Count 0.04 k/cumm (0.0-0.2); Absolute Eosinophil Count 0.24 k/cumm (0.0-0.7); Absolute Lymphocyte Count 1.23 k/cumm (1.2-3.4); Absolute Monocyte Count 1.25 k/cumm (0.11-0.7); Absolute Neutrophil Count 6.14 k/cumm (1.2-6.7); Basophils % 0.4; Eosinophils % 2.7; HCT 41.4 % (36.0-46.0); HGB 14.3 g/dL (12.0-15.5); Immature Grans % 0.8 %; Lymphocytes % 13.7; Mean Corp. HGB Concentration 34.5 g/dL (32.0-36.0); Mean Corpuscular Hemoglobin 28.9 pg (27.0-33.0); Mean Corpuscular Volume 83.6 fL (80-95); Mean Platelet Volume 10.3 fL (8.0-11.0); Monocytes % 13.9; Neutrophils % 68.5; Platelet Count 369 x1000/uL (130-400); RBC 4.95 m/cumm (4.00-5.20); RBC Distribution Width 12.9 % (11.7-14.6); White Blood Cell Count 8.97 k/cumm (4.4-10.8)
[2019-06-19] MEDS: Omnipaque 350 MG/ML 100 ML BTL IJ (11:56)
[2019-06-19 12:08] LABS: INR 1.1 (0.9-1.1); PTT Activated 23.5 sec (21.0-31.4); Prothrombin Time 10.7 sec (9.3-11.0)
[2019-06-19 12:14] LABS: ALT 13 U/L (14-59); AST 10 U/L (15-37); Albumin 3.3 g/dL (3.4-5.0); Alkaline Phosphatase 72 U/L (46-116); Anion Gap 16.4 mmol/L (3-11); BUN 23 mg/dL (7-18); Bilirubin, Total 0.3 mg/dL (0.2-1.0); CO2 18.6 mmol/L (21.0-32.0); CREATININE 1.05 mg/dL (0.55-1.02); Calcium 8.4 mg/dL (8.5-10.1); Chloride 104 mmol/L (98-107); Estimated GFR 56.18 (mL/min/1.73m2); Glucose 115 mg/dL (74-106); Lipase 119 U/L (73-393); Sodium 139 mmol/L (136-145); TSH (W/Ref FT4) 3.51 uIU/mL (0.36-3.74); Total Protein 7.2 g/dL (6.4-8.2)
[2019-06-19 12:17] LABS: Potassium 2.7 mmol/L (3.5-5.1)
[2019-06-19 12:40] LABS: Bilirubin Negative (Negative); Blood Negative (Negative); Clarity Clear (Clear); Glucose Negative (Negative); Ketones Trace mg/dL (Negative); Leukocyte Esterase Negative (Negative); Nitrite Negative (Negative); Urobilinogen 0.2 EU/dL (Up TO 0.2); pH 5.5 (5-8)
[2019-06-19] MEDS: Ketorolac 15 MG/ML VIAL IVP (12:57)
[2019-06-19] MEDS: Potassium Chloride 10 MEQ CAPCR 60 MEQ PO (12:57)
[2019-06-19] MEDS: Loperamide 2 MG CAP PO (13:20)
--- NOTE | 2019-06-19 17:47 | NUR.NOTE ---
Referral Referral faxed to [facility], Nhi Fraser.Nursing Note:
== END 2019-06-19 13:26 | disposition home or self-care (01) ==
PROVIDERS: Emergency Provider Emergency Medicine; PCP Nurse Practitioner Family
DX: K52.9 Noninfective gastroenteritis and colitis, unspecified (principal); E87.6 Hypokalemia; E86.0 Dehydration
CPT/HCPCS: 36415; 80053; 83690; 87449; 87505; 96361; 96374; 96375; 99285; 74177; 81003; 83735; 84443; 85025; 85610; 85730; 87324; 99284; J1885; J2405; J3490

== ENCOUNTER 2019-06-20 14:13 | Outpatient (REF) | payer BC, SELFPAY ==
[2019-06-21 10:51] LABS: Campylobacter PCR Negative (Negative); Salmonella PCR Negative (Negative); Shiga Toxin PCR Negative (Negative); Shigella/Enteroinvasive Ecoli Negative (Negative)
== END 2019-06-20 14:33 ==
LOC: LBN 14:13
PROVIDERS: PCP Nurse Practitioner Family; Visit Provider Emergency Medicine
DX: R19.7 Diarrhea, unspecified (principal)
CPT/HCPCS: 87505; 87324

== ENCOUNTER 2019-06-28 20:12 | Outpatient (REF) | payer BC, SELFPAY ==
[2019-06-28 18:37] LABS: Anion Gap 14.6 mmol/L (3-11); BUN 9 mg/dL (7-18); CO2 19.4 mmol/L (21.0-32.0); Calcium 8.4 mg/dL (8.5-10.1); Chloride 109 mmol/L (98-107); Glucose 108 mg/dL (74-106); Potassium 3.5 mmol/L (3.5-5.1); Sodium 143 mmol/L (136-145)
== END 2019-06-28 20:32 ==
LOC: NCHCN 20:12
PROVIDERS: PCP Nurse Practitioner Family; Visit Provider Nurse Practitioner Family
DX: E87.6 Hypokalemia (principal)
CPT/HCPCS: 80048

== ENCOUNTER 2019-07-09 08:39 | Outpatient (CLI) | payer BC, SELFPAY | END 2019-07-09 08:59 | PROVIDERS: PCP Nurse Practitioner Family; Visit Provider Internal Medicine Cardiovascular Disease | DX: I25.10 Atherosclerotic heart disease of native coronary artery without angina pectoris (principal); Z95.5 Presence of coronary angioplasty implant and graft | CPT/HCPCS: 93005; 93010 ==

== ENCOUNTER 2019-07-25 10:54 | Outpatient (REF) | payer BC, SELFPAY | END 2019-07-25 11:14 | LOC: NCHCN 10:54 | PROVIDERS: PCP Nurse Practitioner Family; Visit Provider Nurse Practitioner Family | DX: A04.72 Enterocolitis due to Clostridium difficile, not specified as recurrent (principal) | CPT/HCPCS: 87324 ==

== ENCOUNTER 2019-07-30 00:13 | Outpatient (CLI) | payer BC, SELFPAY ==
--- NOTE | 2019-07-30 06:30 | DI.NM_ITS ---
APPROVED REPORT Exam: Exercise Treadmill Patient Location: Out-Patient Room/Bed: Stress Nurse: Pamela Conde RN BMI: 33.19 Baseline Rhythm: Sinus Rhythm Comment: Prolonged QT interval. ?? Q waves in leads II, III, and aVF. Inverted T waves in ALL leads e xcept V1. Poor R wave progression in precordial leads. Indications: Since May patient states she has had SOB, Left chest ???tightness??? and left upper arm ???aching??? with activity and symptoms go away with rest. In May 2019 patient reports she allen d an AL ???coded???shocked 2X and had 2 stents placed. Patient reports she still does not feel well a nd continues to have the SOB, Left chest ???tightness??? and left upper arm ???aching???. Medical History Medical History: Breast Cancer with h/o Mastectomy and radiation, Lymphedema, Acid Reflux, Anxiety, D epression, C. Difficile (current), Migraines. Cardiac Medications: Aspirin, Atorvastatin, Clopidogrel, Nitroglycerin. Allergies: No known drug allergies Cardiac Risk Factors: Hyperlipidemia Previous Cardiac Procedures: Myocardial infarction, PCI. Pretest Chest Pain Characteristics: Patient reports intermittent SOB, occasional aching of left upper arm, and occasional left chest tightness today. Exercise History: Sedentary Physical Disabilities: None Lung Sounds: Clear to auscultation Heart Sounds: Regular Stress Test Details Test: Exercise stress converted to pharmacologic stress due to failure to obtain a diagnostic stress test. Reason for pharmacologic stress test: changed from exercise stress test due to inability to reach t arget heart rate. Nuclear Acquisition: Stress Tc-99m/Stress Tc-99m 1 day Rest Isotope: Tc-99m Sestamibi. Dose: 11.0 Date: 07/30/2019 Injection Time: 0940 Stress Isotope: Tc-99m Sestamibi. Dose: 1105 Date: 07/30/2019 Injection Time: 1105 HR Resting HR Supine: 63 bpm Max Heart Rate (APMHR): 173 bpm Resting HR Standin bpm Target HR (85% APMHR): 147 bpm Max HR Achieved: 115 bpm % of APMHR: 66 BP Resting BP Supine: 108/72 mmHg Resting BP Standin/84 mmHg Max BP: 120/94 mmHg ECG Resting ECG: Sinus Rhythm, Poor R-wave progression, T wave inversions throughout. Stress ECG: Sinus Rhythm ST Change: Nondiagnostic resting ST abnormalities Arrhythmia: None Recovery ECG: Sinus Rhythm Recovery ST Change: Nondiagnostic resting ST abnormalities Comment: Of note patient had regular stress test on 06/07/2019. Clinical Reason for Termination: Dyspnea Stress Symptoms: Left upper arm aching at approximately 2 minutes of exercise, and brief SOB with p ost Lexiscan injection. Exercise duration: 2 min0 sec Highest Stage Reached: Stage 1: 1.7 mph at 10% grade. Functional Capacity: Markedly diminished capacity Stress ECG Conclusion 1. The patient exercised for 2 minutes and then converted to pharmacological stress test. 2. There were baseline T wave inversions throughout. 3. The EKG portion of this exam was nondiagnostic Protocol Used: Stephan to Lexiscan Transition Test Stress Test Summary STAGE Time (mins) Speed (mph) Grade (%) HR BP SYMPTOMS METS Supine 63 108/72 Standing 82 112/84 1 3 1.7 10 4.6 2 6 2.5 12 7 3 9 3.4 14 10.2 4 12 4.2 16 12.9 5 15 5.0 18 17.2 1 min post Lexiscan injection 112 110/90 3 min post Lexiscan injection 107 120/88 6 min post Lexiscan injection 97 120/94 9 min post Lexiscan injection 12 min post Lexiscan injection 15 min post Lexiscan injection MPI Conclusion Ejection fraction was 57%. There is dyskinesis of the entire apex. There is a large area of infarct encompassing the entire apex as well as anteroseptal wall. There is a mild amount of nancy-infarct ischemia. This represents an abnormal SPECT stress test. Radiologist Interpretation Radiologist Interpretation by: Prince Sweet MD Interpretation Date/Time: 07/30/2019 17:10:42
[2019-07-30] MEDS: Regadenoson 0.4 MG/5 ML SYR IVP (11:20)
== END 2019-07-30 00:33 ==
PROVIDERS: PCP Nurse Practitioner Family; Visit Provider Internal Medicine Cardiovascular Disease
DX: R06.02 Shortness of breath (principal); R07.89 Other chest pain; I25.2 Old myocardial infarction; E78.5 Hyperlipidemia, unspecified; F41.8 Other specified anxiety disorders
CPT/HCPCS: 78452; 93017; J2785

== ENCOUNTER 2019-09-21 13:07 | Outpatient (REF) | payer BC, SELFPAY | END 2019-09-21 13:27 | LOC: NCHCN 13:07 | PROVIDERS: PCP Nurse Practitioner Family; Visit Provider Family Medicine | DX: A04.72 Enterocolitis due to Clostridium difficile, not specified as recurrent (principal) | CPT/HCPCS: 87324 ==

== ENCOUNTER 2019-10-17 01:12 | Outpatient (CLI) | payer BC, SELFPAY ==
--- NOTE | 2019-10-17 08:36 | DI.US_ITS ---
APPROVED REPORT EXAM: Comprehensive 2D, Doppler, and color-flow Echocardiogram Patient Location: Out-Patient Cheese Pancake Roller: Christi Garcia RDCS (AE) Indications: Ischemic Cardiomyopathy, s/p GA Other Information Study Quality: Good Conclusion Left Ventricle : The left ventricle is normal size. The left ventricular systolic function is normal. The left ventricular ejection fraction is within the normal range. There is normal left ventricular wall thickness. There is relative mild hypokinesis of the apex. The left ventricular diastolic functi on is normal. LVEF is 55-60%. Right Ventricle : The right ventricle is normal size. The right ventricular systolic function is norm al. The RVSP is 22.6 mmHg. Atria : The left atrium size is normal. The right atrium size is normal. Valves: There are no hemodynamically significant valvular lesions. Great Vessels : IVC is normal in size and collapses >50% with inspiration. Please see remainder of report for additional details. Compared to echocardiogram report from outside hospital in May 2019, the patient's ejection fract ion has increased from 35% to within normal range. Wall motion Left Ventricle The left ventricle is normal size. The left ventricular systolic function is normal. The left ventric ular ejection fraction is within the normal range. There is normal left ventricular wall thickness. T here is relative mild hypokinesis of the apex The left ventricular diastolic function is normal. Ther e is no ventricular septal defect visualized. LVEF is 55-60%. Right Ventricle The right ventricle is normal size. The right ventricular systolic function is normal. The RVSP is 22 .6 mmHg. Atria The left atrium size is normal. The right atrium size is normal. The interatrial septum is intact wit h no evidence for an atrial septal defect. Aortic Valve Aortic valve is trileaflet. There is no aortic valvular stenosis. No aortic regurgitation is present. Mitral Valve The mitral valve is normal in structure. No evidence of mitral valve stenosis. Trace mitral regurgita tion. Tricuspid Valve The tricuspid valve is normal in structure. There is no tricuspid valve stenosis. Trace to mild tricu spid regurgitation. Pulmonic Valve The pulmonary valve is normal in structure. There is no pulmonic valvular stenosis. There is no pulmo milan valvular regurgitation. Great Vessels The aortic root is normal in size. The ascending aorta is normal in size. Aortic arch is not well vis ualized. IVC is normal in size and collapses >50% with inspiration. Pericardium There is no pericardial effusion. There is no pleural effusion. 2D Dimensions IVSD d PLAX 0.80 cm F: 0.6-1.0 LV Vol A2C d MOD 78.4 mL LVPW d PLAX 0.81 cm F: 0.6 - 1.0 LV Vol A4C d MOD 123.3 mL LVID d PLAX 4.68 cm F: 3.8 - 5.2 LA vol/ BSA A2C s A-L 22.6 mL/m2 LVDs 2.95 cm F: 2.2 - 3.5 LA vol/ BSA A4C s A-L 24.8 mL/m2 Ao Root d 3.00 cm F: 2.7 - 3.3 LA Vol/ BSA Biplane s A-L 24.4 mL/m2 RA Area A4C 13.09 cm2 LA Area A4C s MOD 16.70 cm2 RA Vol/ BSA A4C s A-L 17.2 mL/m2 LA Area A2C s MOD 15.46 cm2 Ao Asc Diam d 3.10 cm F: 2.3 - 3.1 LV EF A4C MOD 59.4 % LV EF Teichholz 66.0 % LV EF A2C MOD 55.0 % LVEF (Israel's) 56.80 % F: 54 - 74 LV EF Biplane MOD 56.8 % LV Volume 77.95 mL F: 46 - 106 SV 56.98 mL LV Volume Index 43.30 mL/m2 F: 29 - 61 SV Index 31.57 mL/m2 LV Vol Biplane MOD 100.3 mL FS 36.30 % M-Mode TAPSE 2.38 cm (M/F) >1.7 LV Diastology MV E' medial 0.113 (>0.07 m/s) E/A Ratio 1.4 LV E/e MED 8.15 (<14) MV E Vmax 0.93 (0.4-1.3 m/s) MV E' lateral 0.084 (>0.1 m/s) MV A Vmax 0.65 (0.4-1.3 m/s) LV E/e LAT 11.00 (<14) MV E/A Ratio 1.35 MV E/E' medial 8.17 MV E/E' lateral 11.03 Aortic Valve LVOT Area 2.72 cm2 AoV Area Vmax 2.49 cm2 LVOT Vmax 1.04 m/s AoV Area/ BSA (Vmax) 1.38 cm2/m2 LVOT Mean Justyn. 0.60 m/s PABLO Mean Justyn. 2.11 cm2 LVOT Peak Grad 4.3 mmHg PABLO Mean Justyn. Index 1.17 cm2/m2 LVOT Mean Grad 1.8 mmHg LVOT VTI 0.261 m LVOT Diam s 1.85 cm AoV Vmax 1.13 m/s Velocity Ratio 0.92 AoV Mean Justyn. 0.78 m/s AoV Peak Grad 5.1 mmHg LVOT SV 70.98 mL AoV Mean Grad 2.7 mmHg AoV VTI 0.274 m AoV Area VTI 2.59 cm2 AoV Area/ BSA (VTI) 1.43 cm/m2 Mitral Valve MV DT 255 (160-240 msec) MV PHT 74 msec MV Area PHT 2.98 cm2 Pulmonary Valve PV Vmax 0.79 (0.5-1.5 m/s) RVOT Peak Gr. 1.91 mmHg PV Peak Grad 2.5 mmHg RVOT Mean Gr. 0.95 mmHg PV Mean Grad 1.4 mmHg RVOT VTI 0.182 m PV VTI 0.206 m RVOT Vmax 0.69 m/s Tricuspid Valve TR Peak Grad 19.6 mmHg TR Vmax 2.22 m/s RA Pressure 3.00 mmHg RVSP (TR) 22.6 mmHg
== END 2019-10-17 01:32 ==
PROVIDERS: PCP Nurse Practitioner Family; Visit Provider Internal Medicine Cardiovascular Disease
DX: I25.5 Ischemic cardiomyopathy (principal); I25.10 Atherosclerotic heart disease of native coronary artery without angina pectoris; I25.2 Old myocardial infarction
CPT/HCPCS: 93306

== ENCOUNTER 2019-11-12 08:39 | Outpatient (CLI) | payer BC, SELFPAY ==
[2019-11-13 19:45] LABS: COVID-19 RT-PCR UVMMC Result Negative (Negative)
== END 2019-11-12 08:59 ==
PROVIDERS: PCP Nurse Practitioner Family; Visit Provider Family Medicine
DX: Z11.59 Encounter for screening for other viral diseases (principal)
CPT/HCPCS: U0003

== ENCOUNTER 2019-11-13 10:56 | Outpatient (RCR) | payer BC, SELFPAY | END 2019-11-20 23:59 | disposition home or self-care (01) | LOC: CR 10:56 | PROVIDERS: PCP Nurse Practitioner Family; Visit Provider Family Medicine | DX: I25.2 Old myocardial infarction (principal); Z95.5 Presence of coronary angioplasty implant and graft ==

== ENCOUNTER 2019-11-20 14:11 | Outpatient (RCR) | payer BC, SELFPAY | END 2019-11-20 23:59 | disposition home or self-care (01) | LOC: CR 14:11 | PROVIDERS: PCP Nurse Practitioner Family; Visit Provider Family Medicine | DX: R69 Illness, unspecified (principal) ==

== ENCOUNTER 2019-12-21 11:00 | Outpatient (RCR) | payer BC, SELFPAY | END 2019-12-21 23:59 | disposition home or self-care (01) | LOC: CR 11:00 | PROVIDERS: PCP Nurse Practitioner Family; Visit Provider Family Medicine | DX: Z86.74 Personal history of sudden cardiac arrest (principal); Z51.89 Encounter for other specified aftercare; Z95.5 Presence of coronary angioplasty implant and graft | CPT/HCPCS: S9472 ==

== ENCOUNTER 2020-01-01 09:58 | Outpatient (CLI) | payer BC, SELFPAY ==
--- NOTE | 2020-01-01 13:20 | DI.RAD_ITS ---
EXAM: XR SHOULDER RT COMPLETE 2+V CLINICAL HISTORY: SHOULDER JOINT PAIN, M25.511. TECHNIQUE: 2D digital imaging was performed. COMPARISON: No exams were available for comparison FINDINGS: BONES: No acute fracture is present. No bony destructive lesion is seen. JOINTS: No dislocation present. SOFT TISSUE: Normal. IMPRESSION: Unremarkable radiographs of the right shoulder. DATA REPOSITORY: RADIATION DOSE DELIVERED:
== END 2020-01-01 10:18 ==
PROVIDERS: PCP Nurse Practitioner Family; Visit Provider Physician Assistant
DX: M25.511 Pain in right shoulder (principal)
CPT/HCPCS: 73030

== ENCOUNTER 2020-01-02 11:00 | Outpatient (RCR) | payer BC, SELFPAY | END 2020-01-21 23:59 | disposition home or self-care (01) | LOC: CR 11:00 | PROVIDERS: PCP Nurse Practitioner Family; Visit Provider Family Medicine | DX: Z95.5 Presence of coronary angioplasty implant and graft (principal); Z51.89 Encounter for other specified aftercare; Z86.74 Personal history of sudden cardiac arrest | CPT/HCPCS: S9472 ==

== ENCOUNTER 2020-01-08 02:46 | Outpatient (CLI) | payer BC, SELFPAY ==
[2020-01-08 14:21] LABS: BUN 13 mg/dL (7-18); CREATININE 0.88 mg/dL (0.55-1.02); Calcium 8.7 mg/dL (8.5-10.1); Chloride 109 mmol/L (98-107); Glucose 132 mg/dL (74-106); Potassium 3.3 mmol/L (3.5-5.1); Sodium 144 mmol/L (136-145)
[2020-01-08 16:08] LABS: Abs Immature Grans 0.01 10^3/uL (0.0-0.06); Absolute Basophil Count 0.01 10^3/uL (0.0-0.2); Absolute Eosinophil Count 0.13 10^3/uL (0.0-0.7); Absolute Lymphocyte Count 1.25 10^3/uL (1.2-3.4); Absolute Monocyte Count 0.44 10^3/uL (0.1-0.8); Absolute Neutrophil Count 3.03 10^3/uL (1.2-6.7); Basophils % 0.2; Eosinophils % 2.7; HGB 12.7 g/dL (11.2-15.7); Immature Grans % 0.2; Lymphocytes % 25.7; MCH 28.9 pg (27.0-33.0); MCHC 32.6 % (32.0-36.0); MCV 88.8 fL (80-95); MPV 11.8 fL (8.0-11.0); Neutrophils % 62.2; Nucleated RBC 0 %; Platelet Count 201 10^3/uL (130-400); RBC 4.39 10^6/uL (3.93-5.22); RDW 12.6 % (11.7-14.6); RDW-SD 40.9 fL; WBC 4.87 10^3/uL (4.4-10.8)
[2020-01-08 16:26] LABS: ALT 20 U/L (14-59); AST 11 U/L (15-37); Albumin 3.8 g/dL (3.4-5.0); Alkaline Phosphatase 78 U/L (46-116); Bilirubin, Total 0.2 mg/dL (0.2-1.0); Total Protein 7.4 g/dL (6.4-8.2)
== END 2020-01-08 03:06 ==
PROVIDERS: Internal Medicine Hematology & Oncology; PCP Nurse Practitioner Family; Visit Provider Internal Medicine Cardiovascular Disease
DX: C50.919 Malignant neoplasm of unspecified site of unspecified female breast (principal); I25.5 Ischemic cardiomyopathy
CPT/HCPCS: 36415; 80048; 82040; 82247; 84075; 84155; 84450; 84460; 85025

== ENCOUNTER 2020-04-23 16:36 | Outpatient (REF) | payer BC, SELFPAY ==
[2020-04-23 18:20] LABS: C Diff PCR Negative (Negative)
== END 2020-04-23 16:56 ==
LOC: NCHCN 16:36
PROVIDERS: PCP Nurse Practitioner Family; Visit Provider Nurse Practitioner Family
DX: A04.72 Enterocolitis due to Clostridium difficile, not specified as recurrent (principal)
CPT/HCPCS: 87493

== ENCOUNTER 2020-04-25 21:29 | Outpatient (REF) | payer BC, SELFPAY ==
[2020-04-29 10:09] LABS: COVID-19 RT-PCR Result NEGATIVE (Negative)
== END 2020-04-25 21:49 ==
LOC: NCHCN 21:29
PROVIDERS: PCP Nurse Practitioner Family; Visit Provider Nurse Practitioner Family
DX: Z20.828 Contact with and (suspected) exposure to other viral communicable diseases (principal)
CPT/HCPCS: U0003

== ENCOUNTER 2020-05-02 22:32 | Outpatient (REF) | payer BC, SELFPAY ==
[2020-05-06 22:09] LABS: COVID-19 RT-PCR Result NEGATIVE (Negative)
== END 2020-05-02 22:52 ==
LOC: NCHCN 22:32
PROVIDERS: PCP Nurse Practitioner Family; Visit Provider Nurse Practitioner Family
DX: Z20.828 Contact with and (suspected) exposure to other viral communicable diseases (principal)
CPT/HCPCS: U0003

== ENCOUNTER 2020-08-27 16:20 | Outpatient (REF) | payer BC, SELFPAY ==
[2020-08-27 16:01] LABS: Hemoglobin A1C 5.9 % (<5.7)
[2020-08-27 16:12] LABS: ALT 25 U/L (14-59); AST 10 U/L (15-37); Albumin 3.6 g/dL (3.4-5.0); Alkaline Phosphatase 107 U/L (46-116); Anion Gap 11.7 mmol/L (3-11); BUN 14 mg/dL (7-18); Bilirubin, Total 0.2 mg/dL (0.2-1.0); CO2 21.3 mmol/L (21.0-32.0); CREATININE 0.8 mg/dL (0.55-1.02); Calcium 8.7 mg/dL (8.5-10.1); Chloride 109 mmol/L (98-107); Ferritin 69 ng/mL (8-252); Glucose 106 mg/dL (74-106); Sodium 142 mmol/L (136-145)
[2020-08-27 16:28] LABS: ESR 20 mm//hr (0-20)
[2020-08-28 09:43] LABS: Cyclic Citrullinated Peptide <2.5 U/mL (<5.0)
[2020-08-28 15:21] LABS: ANA Interpretation Positive (Negative); ANA Titer Pattern 1:160 Speckled
== END 2020-08-27 16:21 | disposition home or self-care (01) ==
LOC: NCHCN 16:20
PROVIDERS: PCP Nurse Practitioner Family; Visit Provider Family Medicine
DX: R53.83 Other fatigue (principal); M25.511 Pain in right shoulder; M25.512 Pain in left shoulder; R79.89 Other specified abnormal findings of blood chemistry; R73.09 Other abnormal glucose
CPT/HCPCS: 80053; 85652; 86200; 82728; 83036; 84443; 86038

== ENCOUNTER 2020-10-09 03:24 | Outpatient (CLI) | payer BC, SELFPAY ==
[2020-10-09] MEDS: Methacholine 100 MG VIAL IH (12:07)
[2020-10-09] MEDS: Albuterol HFA 18 GM 200 PUFF INH IH (12:08)
[2020-10-09] MEDS: Inhaler, Assist Device 1 EACH MC (12:08)
--- NOTE | 2020-10-09 16:05 | W.PFT ---
Date of service: 10/09/20 Time of Service: 10:11 Pulmonary Function Test Result Interpretation Spirometry: No evidence of obstructive airways disease, no bronchodilator response Impression Normal spirometry Clinical Correlation therefore is recommended. Methacholine Challnege Test Date of Service Date of Service: 10/09/2020 Note After normal baseline spirometry, methacholine challenge testing was carried out up to methacholine concentration of 1 mg/mL. At that point the patient had a 44% drop in FEV1. Impression Strongly positive methacholine challenge test
== END 2020-10-09 03:25 | disposition home or self-care (01) ==
LOC: RT 03:24
PROVIDERS: PCP Nurse Practitioner Family; Visit Provider Nurse Practitioner Family
DX: R06.09 Other forms of dyspnea (principal); Z85.3 Personal history of malignant neoplasm of breast; R94.2 Abnormal results of pulmonary function studies
CPT/HCPCS: 94060; 94726; 94729; 95070; 94010; J7674

== ENCOUNTER 2021-05-27 17:09 | Outpatient (REF) | payer BC, SELFPAY ==
[2021-05-29 16:32] LABS: COVID-19 RT-PCR UVMMC Result Negative (Negative)
== END 2021-05-27 17:10 | disposition home or self-care (01) ==
LOC: LBN 17:09
PROVIDERS: PCP Nurse Practitioner Family; Visit Provider Physician Assistant Medical
DX: Z20.822 Contact with and (suspected) exposure to COVID-19 (principal); R05.8 Other specified cough
CPT/HCPCS: U0003

== ENCOUNTER 2022-03-19 16:23 | Outpatient (REF) | payer BC, SELFPAY ==
[2022-03-19 16:42] LABS: Anion Gap 9.7 mmol/L (3-11); BUN 10 mg/dL (7-18); CO2 22.3 mmol/L (21.0-32.0); Calcium 9.1 mg/dL (8.5-10.1); Chloride 109 mmol/L (98-107); Estimated GFR 68.63 (mL/min/1.73m2); Glucose 114 mg/dL (74-106); Potassium 3.9 mmol/L (3.5-5.1); Sodium 141 mmol/L (136-145)
== END 2022-03-19 16:24 | disposition home or self-care (01) ==
LOC: NCHCN 16:23
PROVIDERS: PCP Nurse Practitioner Family; Visit Provider Nurse Practitioner Family
DX: E87.6 Hypokalemia (principal)
CPT/HCPCS: 80048

== ENCOUNTER 2022-12-06 15:09 | Outpatient (REF) | payer BC, SELFPAY ==
[2022-12-06 15:13] LABS: HCT 40.3 % (36.0-46.0); HGB 12.9 g/dL (11.2-15.7); MCH 28.2 pg (27.0-33.0); MCV 88 fL (80-95); MPV 11.9 fL (8.0-11.0); Platelet Count 201 10^3/uL (130-400); RBC 4.58 10^6/uL (3.93-5.22); RDW 12.7 % (11.7-14.6); WBC 6.49 10^3/uL (4.4-10.8)
[2022-12-06 15:44] LABS: ALT 35 U/L (14-59); AST 36 U/L (15-37); Albumin 3.6 g/dL (3.4-5.0); Alkaline Phosphatase 96 U/L (46-116); Anion Gap 11.3 mmol/L (3-11); BUN 12 mg/dL (7-18); Bilirubin, Total 0.2 mg/dL (0.2-1.0); CO2 19.7 mmol/L (21.0-32.0); CREATININE 0.8 mg/dL (0.55-1.02); Chloride 110 mmol/L (98-107); Estimated GFR 89.15 (mL/min/1.73m2); Glucose 105 mg/dL (74-106); Potassium 4.1 mmol/L (3.5-5.1); Sodium 141 mmol/L (136-145); Total Protein 7.6 g/dL (6.4-8.2)
== END 2022-12-06 15:10 | disposition home or self-care (01) ==
LOC: NCHCN 15:09
PROVIDERS: PCP Nurse Practitioner Family; Visit Provider Nurse Practitioner Family
DX: R10.13 Epigastric pain (principal); K21.9 Gastro-esophageal reflux disease without esophagitis; E87.6 Hypokalemia
CPT/HCPCS: 80053; 85027

== ENCOUNTER 2022-12-09 18:58 | Outpatient (REF) | payer BC, SELFPAY ==
[2022-12-13 14:43] LABS: Helicobacter pylori Ag, Feces Negative (Negative)
== END 2022-12-09 18:59 | disposition home or self-care (01) ==
LOC: NCHCN 18:58
PROVIDERS: PCP Nurse Practitioner Family; Visit Provider Nurse Practitioner Family
DX: R10.13 Epigastric pain (principal); K21.9 Gastro-esophageal reflux disease without esophagitis
CPT/HCPCS: 87338

== ENCOUNTER 2023-07-11 05:10 | Outpatient (CLI) | payer BC, SELFPAY ==
[2023-07-11] MEDS: Levalbuterol HFA 15 GM INH 4 PUFF IH (14:39)
[2023-07-11] MEDS: Inhaler, Assist Device 1 EACH MC (14:39)
--- NOTE | 2023-07-11 15:41 | W.PFT ---
Date of service: 07/11/23 Time of Service: 13:10 Pulmonary Function Test Result Indications: Cough Interpretation Spirometry: There is no airflow limitation. No bronchodilator response. Lung Volumes: Normal lung volumes. Diffusion Capacity: Normal diffusion. Airway Pressure: Normal airways resistance. Impression Normal pulmonary function testing Clinical Correlation therefore is recommended.
== END 2023-07-11 05:11 | disposition home or self-care (01) ==
PROVIDERS: PCP Nurse Practitioner Family; Visit Provider Nurse Practitioner Family
DX: R05.9 Cough, unspecified (principal)
CPT/HCPCS: 94060; 94726; 94729

== ENCOUNTER 2023-09-12 15:42 | Outpatient (REF) | payer BC, SELFPAY ==
[2023-09-12 18:55] LABS: Abs Immature Grans 0.01 10^3/uL (0.0-0.06); Absolute Basophil Count 0.03 10^3/uL (0.0-0.2); Absolute Lymphocyte Count 2.46 10^3/uL (1.2-3.4); Absolute Monocyte Count 0.49 10^3/uL (0.1-0.8); Basophils % 0.5; Eosinophils % 1.6; HCT 41.5 % (36.0-46.0); HGB 13.9 g/dL (11.2-15.7); Immature Grans % 0.2; Lymphocytes % 39.1; MCH 28.4 pg (27.0-33.0); MCHC 33.5 % (32.0-36.0); MCV 85 fL (80-95); MPV 11.8 fL (8.0-11.0); Monocytes % 7.8; Neutrophils % 50.8; Platelet Count 202 10^3/uL (130-400); RBC 4.89 10^6/uL (3.93-5.22); RDW 13.1 % (11.7-14.6); RDW-SD 40.5 fL; WBC 6.29 10^3/uL (4.4-10.8)
[2023-09-12 19:18] LABS: ALT 25 U/L (14-59); AST 25 U/L (15-37); Albumin 3.8 g/dL (3.4-5.0); Alkaline Phosphatase 80 U/L (46-116); Anion Gap 11.9 mmol/L (3-11); BUN 13 mg/dL (7-18); Bilirubin, Total 0.3 mg/dL (0.2-1.0); CO2 22.1 mmol/L (21.0-32.0); CREATININE 0.9 mg/dL (0.55-1.02); Calcium 8.9 mg/dL (8.5-10.1); Calculated LDL 80 mg/dL (<100); Chloride 110 mmol/L (98-107); Cholesterol 162 mg/dL (<200); Estimated GFR 76.92 (mL/min/1.73m2); Glucose 105 mg/dL (74-106); HDL Cholesterol 43 mg/dL (40-60); Potassium 3.7 mmol/L (3.5-5.1); Sodium 144 mmol/L (136-145); Total Protein 7.9 g/dL (6.4-8.2); Triglyceride 198 mg/dL (<150)
== END 2023-09-12 15:43 | disposition home or self-care (01) ==
LOC: NCHCN 15:42
PROVIDERS: PCP Nurse Practitioner Family; Visit Provider Nurse Practitioner Family
DX: R73.03 Prediabetes (principal); F41.9 Anxiety disorder, unspecified; L08.9 Local infection of the skin and subcutaneous tissue, unspecified
CPT/HCPCS: 80053; 80061; 83036; 85025

== ENCOUNTER 2024-10-31 14:41 | Outpatient (REF) | payer BC, SELFPAY ==
[2024-10-31 16:07] LABS: Anion Gap 12.6 mmol/L (3-11); BUN 9 mg/dL (7-18); CO2 23.4 mmol/L (21.0-32.0); CREATININE 0.8 mg/dL (0.55-1.02); Chloride 108 mmol/L (98-107); Estimated GFR 88.05 (mL/min/1.73m2); Glucose 148 mg/dL (74-106); Potassium 3.6 mmol/L (3.5-5.1); Sodium 144 mmol/L (136-145)
== END 2024-10-31 14:42 | disposition home or self-care (01) ==
LOC: NCHCN 14:41
PROVIDERS: PCP Nurse Practitioner Family; Visit Provider Family Medicine
DX: I50.22 Chronic systolic (congestive) heart failure (principal); R73.03 Prediabetes
CPT/HCPCS: 80048; 83036

== ENCOUNTER 2025-02-27 10:51 | Outpatient (REF) | payer BC, SELFPAY ==
[2025-02-27 16:19] LABS: TSH (W/Ref FT4) 3.65 uIU/mL (0.36-3.74)
== END 2025-02-27 10:52 | disposition home or self-care (01) ==
LOC: NCHCN 10:51
PROVIDERS: PCP Family Medicine; Visit Provider Family Medicine
DX: R53.82 Chronic fatigue, unspecified (principal)
CPT/HCPCS: 84443

== ENCOUNTER 2025-03-20 01:21 | Outpatient (CLI) | payer BC, SELFPAY ==
--- NOTE | 2025-03-20 | DI.MAMMO_ITS ---
Exam(s) MG MAMMO SCREENING 60 MIN DUR EXAM: MG MAMMO SCREENING 60 MIN DUR CLINICAL HISTORY: SCREENING, Z12.31,PERSONAL H/O LT BREAST CA. TECHNIQUE: Unilateral right full field digital CC and MLO mammographic images were obtained with 3D tomosynthesis and utilizing computer aided detection (CAD). COMPARISON: Prior mammograms were reviewed. Prior ultrasound 2019 was also reviewed FINDINGS: There has been no significant change in the appearance and distribution of the fibroglandular tissue. Benign macro calcifications are again noted in the right breast. There is also a new group of benign-appearing microcalcifications located inferiorly in the right breast. There are no new spiculated masses nor new malignant appearing microcalcification groups. There is no significant architectural distortion nor skin thickening-retraction. IMPRESSION: Benign findings. No radiographic evidence of malignancy in the right breast.. BI-RADS Category 2 - Benign Findings Breast Density - Category B - There are scattered areas of fibroglandular density. Breast density Category C or D implies that the patient has dense breast tissue. Dense breast tissue can make it harder to find cancer on a mammogram. Dense breast tissue is also associated with an increased risk of breast cancer. This information about the result of the mammogram report was provided to the patient to raise their awareness. Use this report when you speak with the patient about their risks for breast cancer, which includes their family history. At that time, you may recommend additional screening tests (Ultrasound or MRI) as these tests may add significant information. A negative radiographic report should not delay biopsy if a dominant or clinically suspicious mass is present. Up to ten percent of cancers are not identified on mammography. A negative report may reinforce clinical impression. Adenosis and dense breasts may obscure an underlying neoplasm. False positive reports average 6 to 10%. Patient will receive a letter notifying them of these results.
== END 2025-03-20 01:41 ==
LOC: DI 01:21
PROVIDERS: PCP Family Medicine; Visit Provider Family Medicine
DX: Z12.31 Encounter for screening mammogram for malignant neoplasm of breast (principal); R92.323 Mammographic fibroglandular density, bilateral breasts
CPT/HCPCS: 77063; 77067

== ENCOUNTER → 2025-03-25 02:05 | Outpatient (CLI) | payer BC, SELFPAY ==
--- NOTE | 2025-03-25 07:45 | DI.MRI_ITS ---
Exam(s) MR BRAIN WO/W EXAM: MR BRAIN WO/W CLINICAL HISTORY: aguesia intermittent R43.2 PARAGUESIA Z85.3 HX BR CA. TECHNIQUE: Multiplanar multisequence MRI of the brain was performed. CONTRAST MATERIAL: IV Contrast: 15 ML of Dotarem contrast administered. COMPARISON: MR MRI - BRAIN W/WO CONTRAST from 09/01/2016 FINDINGS: VENTRICLES AND EXTRA AXIAL SPACES: Normal in size and morphology for the patient's age. HEMORRHAGE: None. CEREBRAL PARENCHYMA: No focus of restricted diffusion to suggest acute infarct. No space-occupying lesion identified. MIDLINE SHIFT: None. BRAINSTEM/CEREBELLUM: Normal. CALVARIUM: Normal. ENHANCEMENT: No suspicious enhancement identified. VISUALIZED PARANASAL SINUSES/MASTOIDS: Clear. OTHER FINDINGS: None. IMPRESSION: 1. There is no evidence of an intracranial mass or enhancing lesion to suggest metastatic disease. 2. No evidence of an acute infarct. DATA REPOSITORY:
[2025-03-25] MEDS: Normal Saline Flush 10 ML SYR IVP (12:58)
[2025-03-25] MEDS: Gadoterate meglumine 20 ML SYRINGE IVP (12:59)
== END ==
LOC: DI 02:05
PROVIDERS: PCP Family Medicine; Visit Provider Otolaryngology
DX: R43.2 Parageusia (principal); Z85.3 Personal history of malignant neoplasm of breast
CPT/HCPCS: 70553